=== PATIENT | male | born 1945 | race Two or more races ===

== ENCOUNTER 2021-10-06 08:32 | Emergency (ER) | payer OTHER ==
[~2021-10-06] VITALS: Ht 160 cm; Wt 61.7 kg
[2021-10-06] MEDS ORDERED: SIMVASTATIN5 MG (08:57)
[2021-10-06] MEDS ORDERED: COZAAR25 MG PO (08:57)
[2021-10-06] MEDS ORDERED: TOPROL XL25 M1 PO (08:57)
[2021-10-06] MEDS ORDERED: ELIQUIS5 MG PO (08:57)
== END 2021-10-06 22:48 | disposition home or self-care (01) ==
LOC: ER 08:32
DX: U07.1 COVID-19 (principal); I48.91 Unspecified atrial fibrillation; I10 Essential (primary) hypertension